=== PATIENT | male | born 1970 | race Caucasian/White ===

== ENCOUNTER 2018-12-02 08:43 | Inpatient (IN) | payer OTHER ==
[~2018-12-02] VITALS: Ht 167.6 cm; Wt 70.8 kg
[2018-12-02] MEDS ORDERED: IV NORMAL SALINE 1000ML BAG 1,000 ML IV ONE ×2 (09:00→11:15)
[2018-12-02] MEDS ORDERED: ONDANSETRON PF 4 MG/2 ML VIAL. IV ONE (09:00)
[2018-12-02] MEDS ORDERED: KETOROLAC 30 MG/ML VIAL. IV ONE (09:00)
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
--- NOTE | 2018-12-02 09:53 | RAD ---
Examination: Ultrasound testis HISTORY: History of testicular pain COMPARISON: None available FINDINGS: The right testis measures 5.6 x 3.8 x 2.3 cm. The left testis measures 5.6 x 3.4 x 2.4 cm. The right and left testis appears homogenous. Normal blood flow identified in the right and left testis. Small bilateral hydroceles identified. Left-sided varicocele is identified in the mid and lateral portion. IMPRESSION: 1. Left-sided varicocele. 2. Small bilateral hydroceles. Electronically signed by: Tomi Lai MD (12/02/2018 9:51 AM) [place] [id number]
[2018-12-02 10:08] LABS: CALCIUM 8.6 mg/dL (8.5-10.1); CREATININE 1.2 mg/dL (0.7-1.3); GFR 64.1; POTASSIUM 4.3 mmol/L (3.5-5.1)
--- NOTE | 2018-12-02 10:11 | RAD ---
Examination: CT of the abdomen pelvis without contrast HISTORY: History of left groin pain radiating to the testis COMPARISON: None available TECHNIQUE: Axial CT images of the abdomen pelvis were performed without contrast. Coronal and sagittal reformats are performed Exposure: One or more of the following individualized dose reduction techniques were utilized for this examination: 1. Automated exposure control 2. Adjustment of the mA and/or kV according to patient size 3. Use of iterative reconstruction technique FINDINGS: Mild bibasilar lung airspace opacity likely atelectasis or infiltrates. No evidence of free air identified in the abdomen. The evaluation of the solid organs is limited due to lack of IV contrast. The evaluation of bowel is limited due to lack of oral contrast. The visualized noncontrasted liver, spleen, adrenals grossly appears unremarkable. The gallbladder is mildly distended. The stomach is minimally distended. The visualized pancreas grossly appears unremarkable. The small bowel is nondilated. The appendix is normal. Feces and gas noted in the colon. Multiple colonic Diverticulosis. Urinary bladder is mildly distended. Mild left-sided hydronephrosis and minimal left hydroureter identified. There is a 5.5 mm calculus identified just distal to the left ureterovesical junction. Urinary bladder is mildly distended. Mild enlarged prostate gland. Mild degenerative changes lumbar spine. IMPRESSION: 1. A 5.5 mm calculus identified just distal to the left ureterovesical junction causing minimal left-sided hydronephrosis and hydroureter. Electronically signed by: Tomi Lai MD (12/02/2018 10:09 AM) [facility]
[2018-12-02 10:14] LABS: ALBUMIN 3.3 g/dL (3.4-5.0); ALBUMIN/GLOBULIN RATIO 0.9 (1.0-1.7); TOTAL BILIRUBIN 0.4 mg/dL (0.2-1.0); TOTAL PROTEIN 6.8 g/dL (6.4-8.2)
[2018-12-02 10:24] LABS: BASO # 0.1 x10^3/uL (0.0-0.2); BASO % 1 % (0-3); EOS # 0.2 x10^3/uL (0.0-0.7); EOS % 2 % (0-3); HEMATOCRIT 40.5 % (39.0-53.0); HEMOGLOBIN 14.1 g/dL (13.0-17.5); LYMPH # 1.2 x10^3/uL (1.0-4.8); LYMPH % 15 % (24-48); MEAN CORPUSCULAR HEMOGLOBIN 31 pg (25-35); MEAN CORPUSCULAR HGB CONC 35 g/dL (31-37); MEAN CORPUSCULAR VOLUME 90 fL (79-100); MONO # 0.6 x10^3/uL (0.0-1.1); MONO % 7 % (0-9); NEUT % 75 % (31-73); PLATELET COUNT 157 x10^3/uL (140-400); RED CELL DISTRIBUTION WIDTH 14.6 % (11.5-14.5)
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
[2018-12-02] MEDS ORDERED: TAMSULOSIN 0.4 MG CAP.ER.24H. PO ONE (11:00)
[2018-12-02] MEDS ORDERED: MORPHINE SULFATE 10 MG/ML VIAL. IV ONE (11:00)
[2018-12-02] MEDS ORDERED: MORPHINE SULFATE 4 MG/ML VIAL. IV PRN (11:15)
[2018-12-02] MEDS ORDERED: IV RINGERS,LACTATED 1000ML 1,000 ML IV SCH (11:44)
[2018-12-02] MEDS ORDERED: PROCHLORPERAZINE 10 MG/2 ML VIAL. IV PRN (11:45)
[2018-12-02] MEDS ORDERED: fentaNYL PF VIAL 100 MCG/2 ML VIAL IV PRN ×2 (11:45)
[2018-12-02] MEDS ORDERED: ONDANSETRON PF 4 MG/2 ML VIAL. IV PRN (11:45)
[2018-12-02] MEDS ORDERED: MORPHINE SULFATE 2 MG/ML VIAL. IV PRN (11:45)
[2018-12-02] MEDS ORDERED: LIDOCAINE 1% PF 2 ML VIAL. ID PRN (11:45)
[2018-12-02] MEDS ORDERED: HYDROmorphone 2 MG/ML VIAL IV PRN (11:45)
--- NOTE | 2018-12-02 12:54 | PDOC2 ---
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 when he started to have severe pain in his left lower abdomen and left side. It got so intense that he came into [facility] ER. This is the first time he has had any problems with kidney stones. He also denies every having any prostate problems to his knowledge. 15 years ago, he did have a "urethral stricture or blockage" which was dilated by an emergency room physician at [facility], but other than the he is fairly healthy overall. He did vomit once but has not been nauseas since. Currently his pain is 2/10 on his left flank, but he just got a shot of morphine. He denies dysuria or seeing blood in his urine, and is no longer nauseas. He prefers a surgery today if possible. Past Medical History Renal/: Other (Kidney stone ) Current Medications Current Medications Current Medications Fentanyl Citrate (Fentanyl 2ml Vial) 25 mcg PRN Q5MIN PRN IV MILD PAIN 1-3; Start 12/02/18 at 11:45; Stop 12/03/18 at 11:44 Fentanyl Citrate (Fentanyl 2ml Vial) 50 mcg PRN Q5MIN PRN IV MODERATE TO SEVERE PAIN; Start 12/02/18 at 11:45; Stop 12/03/18 at 11:44 Hydromorphone HCl (Dilaudid) 0.5 mg PRN Q10MIN PRN IV SEV PAIN, Second choice; Start 12/02/18 at 11:45; Stop 12/03/18 at 11:44 Ketorolac Tromethamine (Toradol 30mg Vial) 30 mg 1X ONCE IV Last administered on 12/02/18at 09:16; Start 12/02/18 at 09:00; Stop 12/02/18 at 09:01; Status DC Lidocaine HCl (Xylocaine-Mpf 1% 2ml Vial) 2 ml PRN 1X PRN ID PRIOR TO IV START; Start 12/02/18 at 11:45; Stop 12/03/18 at 11:44 Morphine Sulfate (Morphine Sulfate) 1 mg PRN Q10MIN PRN IV SEVERE PAIN 7-10; Start 12/02/18 at 11:45; Stop 12/03/18 at 11:44 Morphine Sulfate (Morphine Sulfate) 4 mg PRN Q2HR PRN IV PAIN; Start 12/02/18 at 11:15; Stop 12/03/18 at 11:14 Morphine Sulfate (Morphine Sulfate) 5 mg 1X ONCE IV Last administered on 12/02/18at 11:05; Start 12/02/18 at 11:00; Stop 12/02/18 at 11:01; Status DC Ondansetron HCl (Zofran) 4 mg 1X ONCE IV Last administered on 12/02/18at 09:16; Start 12/02/18 at 09:00; Stop 12/02/18 at 09:01; Status DC Ondansetron HCl (Zofran) 4 mg PRN Q6HRS PRN IV NAUSEA/VOMITING; Start 12/02/18 at 11:45; Stop 12/03/18 at 11:44 Ondansetron HCl (Zofran) 4 mg PRN Q8HRS PRN IV NAUSEA/VOMITING; Start 12/02/18 at 11:15; Stop 12/03/18 at 11:14 Prochlorperazine Edisylate (Compazine) 5 mg PACU PRN PRN IV NAUSEA, MRX1; Start 12/02/18 at 11:45; Stop 12/03/18 at 11:44 Ringer's Solution 1,000 ml @ 30 mls/hr Q24H IV ; Start 12/02/18 at 11:44; Stop 12/02/18 at 23:43 Sodium Chloride 1,000 ml @ 125 mls/hr 1X ONCE IV ; Start 12/02/18 at 11:15; Stop 12/02/18 at 19:14 Sodium Chloride 1,000 ml @ 1,000 mls/hr 1X ONCE IV Last administered on 12/02/18at 09:15; Start 12/02/18 at 09:00; Stop 12/02/18 at 09:59; Status DC Tamsulosin HCl (Flomax) 0.4 mg 1X ONCE PO Last administered on 12/02/18at 11:04; Start 12/02/18 at 11:00; Stop 12/02/18 at 11:01; Status DC Allergies Allergies: Coded Allergies: No Known Drug Allergies (Unverified , 12/02/18) ROS Review Of Systems: CONSTITUTIONAL: No fever or chills EYES: No recent changes SKIN: No rash or itching CARDIOVASCULAR: No chest pain, syncope, palpitations, or edema RESPIRATORY: No SOB or cough GASTROINTESTINAL: + abdominal pain left side NEUROLOGICAL: No headaches or weakness ENDOCRINE: No cold or heat intolerance GENITOURINARY: No urgency or frequency of urination MUSCULOSKELETAL: No back pain or joint pain LYMPHATICS: No enlarged lymph nodes PSYCHIATRIC: No anxiety or depression Physical Exam Physical Exam: General: Pleasant, no acute distress, well groomed Eyes: conjunctiva anicteric, eyes full range of motion ENT: moist oral mucosa, normal dentition Neck: Trachea midline, no masses Respiratory: unlabored breathing, not using accessory muscles, Back: +CVA pain on the left, none on the right Abdomen: slight tenderness left side, non tender on the right. Skin: no rashes or skin lesions on visualized skin Psych: normal mood, affect. Alert and oriented x 3. Vitals VITALS Vital Signs Date Time Temp Pulse Resp B/P (MAP) Pulse Ox O2 Delivery O2 Flow Rate FiO2 12/02/18 11:05 20 12/02/18 11:03 58 129/66 (87) 99 Room Air 12/02/18 08:58 98.2 98.2 Labs Labs Laboratory Tests Test 12/02/18 09:40 White Blood Count 8.0 x10^3/uL (4.0-11.0) Red Blood Count 4.50 x10^6/uL (4.30-5.70) Hemoglobin 14.1 g/dL (13.0-17.5) Hematocrit 40.5 % (39.0-53.0) Mean Corpuscular Volume 90 fL (79-100) Mean Corpuscular Hemoglobin 31 pg (25-35) Mean Corpuscular Hemoglobin Concent 35 g/dL (31-37) Red Cell Distribution Width 14.6 % (11.5-14.5) Platelet Count 157 x10^3/uL (140-400) Neutrophils (%) (Auto) 75 % (31-73) Lymphocytes (%) (Auto) 15 % (24-48) Monocytes (%) (Auto) 7 % (0-9) Eosinophils (%) (Auto) 2 % (0-3) Basophils (%) (Auto) 1 % (0-3) Neutrophils # (Auto) 6.0 x10^3uL (1.8-7.7) Lymphocytes # (Auto) 1.2 x10^3/uL (1.0-4.8) Monocytes # (Auto) 0.6 x10^3/uL (0.0-1.1) Eosinophils # (Auto) 0.2 x10^3/uL (0.0-0.7) Basophils # (Auto) 0.1 x10^3/uL (0.0-0.2) Sodium Level 142 mmol/L (136-145) Potassium Level 4.3 mmol/L (3.5-5.1) Chloride Level 107 mmol/L (98-107) Carbon Dioxide Level 24 mmol/L (21-32) Anion Gap 11 (6-14) Blood Urea Nitrogen 19 mg/dL (8-26) Creatinine 1.2 mg/dL (0.7-1.3) Estimated GFR (Cockcroft-Gault) 64.1 BUN/Creatinine Ratio 16 (6-20) Glucose Level 110 mg/dL (70-99) Calcium Level 8.6 mg/dL (8.5-10.1) Total Bilirubin 0.4 mg/dL (0.2-1.0) Aspartate Amino Transf (AST/SGOT) 23 U/L (15-37) Alanine Aminotransferase (ALT/SGPT) 28 U/L (16-63) Alkaline Phosphatase 119 U/L (46-116) Total Protein 6.8 g/dL (6.4-8.2) Albumin 3.3 g/dL (3.4-5.0) Albumin/Globulin Ratio 0.9 (1.0-1.7) Lipase 99 U/L (73-393) Ethyl Alcohol Level < 10 mg/dL (0-10) Laboratory Tests Test 12/02/18 09:40 White Blood Count 8.0 x10^3/uL (4.0-11.0) Red Blood Count 4.50 x10^6/uL (4.30-5.70) Hemoglobin 14.1 g/dL (13.0-17.5) Hematocrit 40.5 % (39.0-53.0) Mean Corpuscular Volume 90 fL (79-100) Mean Corpuscular Hemoglobin 31 pg (25-35) Mean Corpuscular Hemoglobin Concent 35 g/dL (31-37) Red Cell Distribution Width 14.6 % (11.5-14.5) Platelet Count 157 x10^3/uL (140-400) Neutrophils (%) (Auto) 75 % (31-73) Lymphocytes (%) (Auto) 15 % (24-48) Monocytes (%) (Auto) 7 % (0-9) Eosinophils (%) (Auto) 2 % (0-3) Basophils (%) (Auto) 1 % (0-3) Neutrophils # (Auto) 6.0 x10^3uL (1.8-7.7) Lymphocytes # (Auto) 1.2 x10^3/uL (1.0-4.8) Monocytes # (Auto) 0.6 x10^3/uL (0.0-1.1) Eosinophils # (Auto) 0.2 x10^3/uL (0.0-0.7) Basophils # (Auto) 0.1 x10^3/uL (0.0-0.2) Sodium Level 142 mmol/L (136-145) Potassium Level 4.3 mmol/L (3.5-5.1) Chloride Level 107 mmol/L (98-107) Carbon Dioxide Level 24 mmol/L (21-32) Anion Gap 11 (6-14) Blood Urea Nitrogen 19 mg/dL (8-26) Creatinine 1.2 mg/dL (0.7-1.3) Estimated GFR (Cockcroft-Gault) 64.1 BUN/Creatinine Ratio 16 (6-20) Glucose Level 110 mg/dL (70-99) Calcium Level 8.6 mg/dL (8.5-10.1) Total Bilirubin 0.4 mg/dL (0.2-1.0) Aspartate Amino Transf (AST/SGOT) 23 U/L (15-37) Alanine Aminotransferase (ALT/SGPT) 28 U/L (16-63) Alkaline Phosphatase 119 U/L (46-116) Total Protein 6.8 g/dL (6.4-8.2) Albumin 3.3 g/dL (3.4-5.0) Albumin/Globulin Ratio 0.9 (1.0-1.7) Lipase 99 U/L (73-393) Ethyl Alcohol Level < 10 mg/dL (0-10) Images Images CT ABD PELVIS IMPRESSION: 1. A 5.5 mm calculus identified just distal to the left ureterovesical junction causing minimal left-sided hydronephrosis and hydroureter. Assessment/Plan Assessment/Plan We will take patient to surgery today for L URS and stent placement with Dr. Morales [place] [facility] [place]. Explained procedure to patient, all questions answered. Pt to remain NPO until after procedure. Nurse to obtain UA. Consents entered. Ancef 2 gram preopp times one. Continue hydration, Flomax. SEAN MORALES MD 12/02/18 1451: UROLOGY CONSULT Assessment/Plan Assessment/Plan Patient seen and examined. CT scan images reviewed - 5-6 mm left UVJ stone. He does not want to try to pass the stone, elects for ureteroscopy, laser of stone, possible stent placement. Risks of procedure discussed in detail. IVANNA MOORE APRN December 02, 2018 12:54 SEAN MORALES MD December 02, 2018 14:51
[2018-12-02 12:56] LABS: BILIRUBIN,URINE NEGATIVE (NEG); CLARITY,URINE CLOUDY; COLOR,URINE YELLOW; NITRITE,URINE NEGATIVE (NEG); PH,URINE 5.5; PROTEIN,URINE NEGATIVE (NEG-TRACE); UROBILINOGEN,URINE 0.2 mg/dL (0.2 mg/dL)
[2018-12-02 13:00] VITALS: BP 129/70
[2018-12-02 13:02] LABS: BARBITURATES NEG (NEG); BENZODIAZEPINES NEG (NEG); CANNABINOIDS NEG (NEG); COCAINE NEG (NEG); METHADONE NEG (NEG); OPIATES POS (NEG); PHENCYCLIDINE NEG (NEG)
[2018-12-02 13:04] LABS: AMPHETAMINE/METHAMPHETAMINE NEG (NEG)
[2018-12-02 13:05] LABS: BACTERIA,URINE 0 /HPF (0-FEW); SQUAMOUS EPITHELIAL CELL,UR FEW /LPF; WBC,URINE OCC /HPF (0-4)
[2018-12-02 15:19] VITALS: BP 108/61
[2018-12-02] MEDS ORDERED: IOHEXOL 300 MG/ML 50 ML VIAL. ONE (16:40)
[2018-12-02] MEDS ORDERED: LIDOCAINE 2% JELLY 6ML IN APPLICATOR. ONE (16:41)
[2018-12-02] MEDS ORDERED: fentaNYL PF VIAL 100 MCG/2 ML VIAL ONE (17:49)
[2018-12-02] MEDS ORDERED: MIDAZOLAM HCL/PF 2 MG/2 ML VIAL. ONE (17:49)
[2018-12-02] MEDS ORDERED: ceFAZolin 2GM PREMIX 2 GM/50 ML BAG IV ONE (18:00)
[2018-12-02] MEDS ORDERED: IOHEXOL 300 MG/ML 50 ML VIAL. IV ONE (18:41)
--- NOTE | 2018-12-02 18:50 | PDOC4 ---
OPERATIVE NOTE Date: Date: December 02, 2018 Pre-Op Diagnosis: left ureter stone Post-Op Diagnosis: bladder stone, urethral stricture Procedure Performed: left diagnostic ureteroscopy dilation of urethral stricture Surgeon: Sean Morales MD Anesthesia Type: general Blood Loss: 0 Specimans Obtained: stone fragments Findings: stone in bladder. no stones in left ureter membranous urethral stricture Complications: none Operative Note: see dictation SEAN MORALES MD December 02, 2018 18:50
[2018-12-02] MEDS ORDERED: DEXAMETHASONE SOD PHOS 4 MG/ML VIAL ONE (18:53)
[2018-12-02] MEDS ORDERED: LIDOCAINE 2% PF 5 ML VIAL. ONE (18:53)
[2018-12-02] MEDS ORDERED: PROPOFOL 20 ML IV ONE (18:53)
[2018-12-02] MEDS ORDERED: ONDANSETRON PF 4 MG/2 ML VIAL. ONE (18:53)
[2018-12-02] MEDS ORDERED: SEVOFLURANE 31 TO 60 MINUTES. IH ONE (18:53)
--- NOTE | 2018-12-02 19:20 | NUR ---
RN received report from Johanna in PACU. Pt was transported via bed from PACU to room 412 at 1930. RN performed a head to toe assessment at that time. Patient reported pain a 4/10, VSS, and afebrile. Post op vitals were started at that time. RN will continue to monitor patient closely.
[2018-12-02 20:07] VITALS: BP 115/68
[2018-12-02] MEDS: KETOROLAC 30 MG/ML VIAL. IV PRN (20:15)
--- NOTE | 2018-12-02 20:19 | OP ---
DATE OF SURGERY: 12/02/2018 SURGEON: Sean Morales MD DRILL [employer] OPERATOR: None. PREOPERATIVE DIAGNOSIS: Left ureter stone. POSTOPERATIVE DIAGNOSES: Bladder stone and urethral stricture. PROCEDURES PERFORMED: Diagnostic left ureteroscopy with retrograde pyelogram and dilation of urethral stricture. ANESTHESIA TYPE: General. DESCRIPTION OF PROCEDURE: This is a 48-year-old male who was admitted with a 5 mm distal left ureter stone. After discussion of risks, benefits and alternatives, he agreed to the above procedure. Informed consent was obtained. The patient was taken to the operating room where general anesthesia was induced. He was placed in the dorsal lithotomy position and sterilely prepped and draped. A timeout was performed. A rigid cystoscope was advanced into the urethra. A dense stricture was noted in the membranous urethra about 1.5 cm in length. A guidewire was advanced through the narrowed urethral opening and into the bladder. Under fluoroscopic guidance, the urethral stricture was dilated up to 24-Setswana with Krishnamurthy sounds. The cystoscope was then reintroduced and the urethra appeared to have dilated nicely without any bleeding noted. Within the bladder, was a stone. The stone was evacuated through the scope and broke apart and then the stone fragments were sent as a specimen. The left ureteral orifice was inspected with the cystoscope and there were no obvious ureteral jets noted, so a guidewire was placed into the left ureter and advanced into the left renal pelvis. Ureteral catheter was advanced over the wire and then a left retrograde pyelogram was performed, which showed mild left hydronephrosis. The guidewire was reintroduced. A rigid ureteroscope was advanced alongside the wire and then up into the mid ureter and no stones were noted. The scope and wire were withdrawn. The flexible cystoscope was reintroduced and the left ureteral orifice was again observed and at this point, strong jets of urine and contrast were seen draining into the bladder. There was no residual contrast noted on fluoroscopy after about 2 minutes. The bladder contents were emptied. The patient was then awakened and taken to the recovery room in stable condition. BLOOD LOSS: None. COMPLICATIONS: None. SPECIMENS: Stone fragments. SEAN MORALES MD DR: LEXII/shaka JOB#: [id number] / [id number]
[2018-12-02] MEDS: TAMSULOSIN 0.4 MG CAP.ER.24H. PO SCH (20:57)
--- NOTE | 2018-12-02 22:08 | NUR ---
RN paged MD to get something additional for pain per patient request. Orders were received and implemented at that time. RN will continue to monitor patient closely.
[2018-12-02] MEDS ORDERED: HYDROcodone/APAP 5/325MG 1 TAB TABLET PO PRN (22:15)
[2018-12-02] MEDS: HYDROcodone/APAP 5/325MG 1 TAB TABLET PO PRN (22:35)
[2018-12-02] MEDS: ONDANSETRON PF 4 MG/2 ML VIAL. IV PRN (22:36)
[2018-12-02 23:00] VITALS: BP 107/58
[2018-12-03 03:00] VITALS: BP 94/49
[2018-12-03 03:52] LABS: BASO % 0 % (0-3); EOS % 0 % (0-3); HEMATOCRIT 38.5 % (39.0-53.0); HEMOGLOBIN 12.9 g/dL (13.0-17.5); LYMPH % 15 % (24-48); MEAN CORPUSCULAR HEMOGLOBIN 31 pg (25-35); MEAN CORPUSCULAR HGB CONC 33 g/dL (31-37); MEAN CORPUSCULAR VOLUME 91 fL (79-100); MONO # 0.2 x10^3/uL (0.0-1.1); MONO % 3 % (0-9); NEUT # 5.7 x10^3uL (1.8-7.7); NEUT % 83 % (31-73); PLATELET COUNT 153 x10^3/uL (140-400); RED BLOOD COUNT 4.22 x10^6/uL (4.30-5.70); RED CELL DISTRIBUTION WIDTH 14.1 % (11.5-14.5); WHITE BLOOD COUNT 6.9 x10^3/uL (4.0-11.0)
[2018-12-03 07:00] VITALS: BP 96/54
[2018-12-03] MEDS: TAMSULOSIN 0.4 MG CAP.ER.24H. PO SCH (07:54)
[2018-12-03] MEDS: KETOROLAC 30 MG/ML VIAL. IV PRN (07:54)
[2018-12-03] MEDS: HYDROcodone/APAP 5/325MG 1 TAB TABLET PO PRN (10:27)
[2018-12-03] MEDS: ONDANSETRON PF 4 MG/2 ML VIAL. IV PRN (10:28)
[2018-12-03 11:00] VITALS: BP 108/55
--- NOTE | 2018-12-03 11:03 | NUR ---
SW following for discharge planning. Discussed with RN, pt is from home. RN and Dr. Brown advised possible discharge if okay with urology. RN advised no SW needs. SW will continue to follow.
[2018-12-03] MEDS ORDERED: MAG HYDROX/ALUMINUM HYD/SIMETH 30 ML ORAL.SUSP PO PRN (12:00)
[2018-12-03] MEDS ORDERED: CALCIUM CARBONATE 500 MG TAB.CHEW PO PRN (12:00)
--- NOTE | 2018-12-03 12:59 | PDOC ---
PROGRESS NOTES Chief Complaint Chief Complaint Left groin pain - obstructive nephrolithiasis. Consulted urology. Elevated glucose - will monitor, no h/o DM Elevated alkaline phos - will monitor, no liver history Smoker - offered nicotine patch, counseled on cessation Left hydronephrosis - 2/2 obstructive nephrolithiasis, no sx of pyelo, Nausea and vomiting - likely 2/2 nephrolithiasis, will give IV zofran History of Present Illness History of Present Illness Patient lying in bed in no acute distress, patient denies fever and chills, he compalined of heartburn after my visit. Awaiting for urology final recommendations. Vitals Vitals Vital Signs Date Time Temp Pulse Resp B/P (MAP) Pulse Ox O2 Delivery O2 Flow Rate FiO2 12/03/18 11:24 96 Room Air 12/03/18 11:00 97.4 60 20 108/55 (72) 97.4 12/02/18 19:10 8 Physical Exam General: Alert, Oriented X3, Cooperative, No acute distress Abdomen: Normal bowel sounds, Soft, No hepatosplenomegaly, No masses, Other (Left flank pain) Extremities: No clubbing, No cyanosis, No edema, Normal pulses, No tenderness/swelling Skin: No rashes, No breakdown, No significant lesion Labs LABS Laboratory Tests Test 12/03/18 03:05 White Blood Count 6.9 x10^3/uL (4.0-11.0) Red Blood Count 4.22 x10^6/uL (4.30-5.70) Hemoglobin 12.9 g/dL (13.0-17.5) Hematocrit 38.5 % (39.0-53.0) Mean Corpuscular Volume 91 fL (79-100) Mean Corpuscular Hemoglobin 31 pg (25-35) Mean Corpuscular Hemoglobin Concent 33 g/dL (31-37) Red Cell Distribution Width 14.1 % (11.5-14.5) Platelet Count 153 x10^3/uL (140-400) Neutrophils (%) (Auto) 83 % (31-73) Lymphocytes (%) (Auto) 15 % (24-48) Monocytes (%) (Auto) 3 % (0-9) Eosinophils (%) (Auto) 0 % (0-3) Basophils (%) (Auto) 0 % (0-3) Neutrophils # (Auto) 5.7 x10^3uL (1.8-7.7) Lymphocytes # (Auto) 1.0 x10^3/uL (1.0-4.8) Monocytes # (Auto) 0.2 x10^3/uL (0.0-1.1) Eosinophils # (Auto) 0.0 x10^3/uL (0.0-0.7) Basophils # (Auto) 0.0 x10^3/uL (0.0-0.2) Review of Systems Review of Systems pertinent as per hpi otherwise 10 point review of system is negative. Assessment and Plan Assessmemt and Plan Problems Medical Problems: (1) Hydrocele Status: Acute (2) Kidney stones Status: Acute (3) Varicocele Status: Acute Comment Review of Relevant I have reviewed the following items jake (where applicable) has been applied. Labs Laboratory Tests Test 12/02/18 09:40 12/02/18 12:30 12/03/18 03:05 White Blood Count 8.0 x10^3/uL (4.0-11.0) 6.9 x10^3/uL (4.0-11.0) Red Blood Count 4.50 x10^6/uL (4.30-5.70) 4.22 x10^6/uL (4.30-5.70) Hemoglobin 14.1 g/dL (13.0-17.5) 12.9 g/dL (13.0-17.5) Hematocrit 40.5 % (39.0-53.0) 38.5 % (39.0-53.0) Mean Corpuscular Volume 90 fL (79-100) 91 fL (79-100) Mean Corpuscular Hemoglobin 31 pg (25-35) 31 pg (25-35) Mean Corpuscular Hemoglobin Concent 35 g/dL (31-37) 33 g/dL (31-37) Red Cell Distribution Width 14.6 % (11.5-14.5) 14.1 % (11.5-14.5) Platelet Count 157 x10^3/uL (140-400) 153 x10^3/uL (140-400) Neutrophils (%) (Auto) 75 % (31-73) 83 % (31-73) Lymphocytes (%) (Auto) 15 % (24-48) 15 % (24-48) Monocytes (%) (Auto) 7 % (0-9) 3 % (0-9) Eosinophils (%) (Auto) 2 % (0-3) 0 % (0-3) Basophils (%) (Auto) 1 % (0-3) 0 % (0-3) Neutrophils # (Auto) 6.0 x10^3uL (1.8-7.7) 5.7 x10^3uL (1.8-7.7) Lymphocytes # (Auto) 1.2 x10^3/uL (1.0-4.8) 1.0 x10^3/uL (1.0-4.8) Monocytes # (Auto) 0.6 x10^3/uL (0.0-1.1) 0.2 x10^3/uL (0.0-1.1) Eosinophils # (Auto) 0.2 x10^3/uL (0.0-0.7) 0.0 x10^3/uL (0.0-0.7) Basophils # (Auto) 0.1 x10^3/uL (0.0-0.2) 0.0 x10^3/uL (0.0-0.2) Sodium Level 142 mmol/L (136-145) Potassium Level 4.3 mmol/L (3.5-5.1) Chloride Level 107 mmol/L (98-107) Carbon Dioxide Level 24 mmol/L (21-32) Anion Gap 11 (6-14) Blood Urea Nitrogen 19 mg/dL (8-26) Creatinine 1.2 mg/dL (0.7-1.3) Estimated GFR (Cockcroft-Gault) 64.1 BUN/Creatinine Ratio 16 (6-20) Glucose Level 110 mg/dL (70-99) Calcium Level 8.6 mg/dL (8.5-10.1) Total Bilirubin 0.4 mg/dL (0.2-1.0) Aspartate Amino Transf (AST/SGOT) 23 U/L (15-37) Alanine Aminotransferase (ALT/SGPT) 28 U/L (16-63) Alkaline Phosphatase 119 U/L (46-116) Total Protein 6.8 g/dL (6.4-8.2) Albumin 3.3 g/dL (3.4-5.0) Albumin/Globulin Ratio 0.9 (1.0-1.7) Lipase 99 U/L (73-393) Ethyl Alcohol Level < 10 mg/dL (0-10) Urine Collection Type Unknown Urine Color Yellow Urine Clarity Cloudy Urine pH 5.5 Urine Specific [place] 1.010 Urine Protein Negative mg/dL (NEG-TRACE) Urine Glucose (UA) Negative mg/dL (NEG) Urine Ketones (Stick) Negative mg/dL (NEG) Urine Blood Large (NEG) Urine Nitrite Negative (NEG) Urine Bilirubin Negative (NEG) Urine Urobilinogen Dipstick 0.2 mg/dL (0.2 mg/dL) Urine Leukocyte Esterase Negative (NEG) Urine RBC 6-10 /HPF (0-2) Urine WBC Occ /HPF (0-4) Urine Squamous Epithelial Cells Few /LPF Urine Bacteria 0 /HPF (0-FEW) Urine Opiates Screen Pos (NEG) Urine Methadone Screen Neg (NEG) Urine Barbiturates Neg (NEG) Urine Phencyclidine Screen Neg (NEG) Urine Amphetamine/Methamphetamine Neg (NEG) Urine Benzodiazepines Screen Neg (NEG) Urine Cocaine Screen Neg (NEG) Urine Cannabinoids Screen Neg (NEG) Urine Ethyl Alcohol Neg (NEG) Laboratory Tests Test 12/03/18 03:05 White Blood Count 6.9 x10^3/uL (4.0-11.0) Red Blood Count 4.22 x10^6/uL (4.30-5.70) Hemoglobin 12.9 g/dL (13.0-17.5) Hematocrit 38.5 % (39.0-53.0) Mean Corpuscular Volume 91 fL (79-100) Mean Corpuscular Hemoglobin 31 pg (25-35) Mean Corpuscular Hemoglobin Concent 33 g/dL (31-37) Red Cell Distribution Width 14.1 % (11.5-14.5) Platelet Count 153 x10^3/uL (140-400) Neutrophils (%) (Auto) 83 % (31-73) Lymphocytes (%) (Auto) 15 % (24-48) Monocytes (%) (Auto) 3 % (0-9) Eosinophils (%) (Auto) 0 % (0-3) Basophils (%) (Auto) 0 % (0-3) Neutrophils # (Auto) 5.7 x10^3uL (1.8-7.7) Lymphocytes # (Auto) 1.0 x10^3/uL (1.0-4.8) Monocytes # (Auto) 0.2 x10^3/uL (0.0-1.1) Eosinophils # (Auto) 0.0 x10^3/uL (0.0-0.7) Basophils # (Auto) 0.0 x10^3/uL (0.0-0.2) Medications Current Medications Sodium Chloride 1,000 ml @ 1,000 mls/hr 1X ONCE IV Last administered on 12/02/18at 09:15; Start 12/02/18 at 09:00; Stop 12/02/18 at 09:59; Status DC Ketorolac Tromethamine (Toradol 30mg Vial) 30 mg 1X ONCE IV Last administered on 12/02/18at 09:16; Start 12/02/18 at 09:00; Stop 12/02/18 at 09:01; Status DC Ondansetron HCl (Zofran) 4 mg 1X ONCE IV Last administered on 12/02/18at 09:16; Start 12/02/18 at 09:00; Stop 12/02/18 at 09:01; Status DC Tamsulosin HCl (Flomax) 0.4 mg 1X ONCE PO Last administered on 12/02/18at 11:04; Start 12/02/18 at 11:00; Stop 12/02/18 at 11:01; Status DC Morphine Sulfate (Morphine Sulfate) 5 mg 1X ONCE IV Last administered on 12/02/18at 11:05; Start 12/02/18 at 11:00; Stop 12/02/18 at 11:01; Status DC Ondansetron HCl (Zofran) 4 mg PRN Q8HRS PRN IV NAUSEA/VOMITING Last administered on 12/03/18at 10:28; Start 12/02/18 at 11:15; Stop 12/03/18 at 11:14; Status DC Morphine Sulfate (Morphine Sulfate) 4 mg PRN Q2HR PRN IV PAIN Last administered on 12/02/18at 14:09; Start 12/02/18 at 11:15; Stop 12/02/18 at 16:13; Status DC Sodium Chloride 1,000 ml @ 125 mls/hr 1X ONCE IV Last administered on 12/02/18at 14:14; Start 12/02/18 at 11:15; Stop 12/02/18 at 19:14; Status DC Ondansetron HCl (Zofran) 4 mg PRN Q6HRS PRN IV NAUSEA/VOMITING; Start 12/02/18 at 11:45; Stop 12/03/18 at 08:32; Status DC Fentanyl Citrate (Fentanyl 2ml Vial) 25 mcg PRN Q5MIN PRN IV MILD PAIN 1-3; Start 12/02/18 at 11:45; Stop 12/03/18 at 08:32; Status DC Fentanyl Citrate (Fentanyl 2ml Vial) 50 mcg PRN Q5MIN PRN IV MODERATE TO SEVERE PAIN; Start 12/02/18 at 11:45; Stop 12/03/18 at 08:32; Status DC Morphine Sulfate (Morphine Sulfate) 1 mg PRN Q10MIN PRN IV SEVERE PAIN 7-10; Start 12/02/18 at 11:45; Stop 12/02/18 at 16:13; Status DC Ringer's Solution 1,000 ml @ 30 mls/hr Q24H IV Last administered on 12/02/18at 18:02; Start 12/02/18 at 11:44; Stop 12/02/18 at 23:43; Status DC Lidocaine HCl (Xylocaine-Mpf 1% 2ml Vial) 2 ml PRN 1X PRN ID PRIOR TO IV START; Start 12/02/18 at 11:45; Stop 12/03/18 at 08:32; Status DC Hydromorphone HCl (Dilaudid) 0.5 mg PRN Q10MIN PRN IV SEV PAIN, Second choice; Start 12/02/18 at 11:45; Stop 12/03/18 at 08:32; Status DC Prochlorperazine Edisylate (Compazine) 5 mg PACU PRN PRN IV NAUSEA, MRX1; Start 12/02/18 at 11:45; Stop 12/03/18 at 08:32; Status DC Cefazolin Sodium/ Dextrose 50 ml @ 100 mls/hr 1X ONCE IV ; Start 12/02/18 at 17:00; Stop 12/02/18 at 17:29; Status DC Ketorolac Tromethamine (Toradol 30mg Vial) 30 mg PRN Q6HRS PRN IV PAIN Last administered on 12/03/18at 07:54; Start 12/02/18 at 16:15; Stop 12/07/18 at 16:14 Tamsulosin HCl (Flomax) 0.4 mg BID PO Last administered on 12/03/18at 07:54; Start 12/02/18 at 21:00 Iohexol (Omnipaque 300 Mg/ml) 50 ml STK-MED ONCE .ROUTE ; Start 12/02/18 at 16:40; Stop 12/02/18 at 17:41; Status DC Lidocaine HCl (Glydo (Lidocaine) Jelly) 6 alicia STK-MED ONCE .ROUTE ; Start 12/02/18 at 16:41; Stop 12/02/18 at 17:41; Status DC Midazolam HCl (Versed) 2 mg STK-MED ONCE .ROUTE ; Start 12/02/18 at 17:49; Stop 12/02/18 at 17:50; Status DC Fentanyl Citrate (Fentanyl 2ml Vial) 100 mcg STK-MED ONCE .ROUTE ; Start 12/02/18 at 17:49; Stop 12/02/18 at 17:50; Status DC Iohexol (Omnipaque 300 Mg/ml) 50 ml STK-MED ONCE IV Last administered on 12/02/18at 18:41; Start 12/02/18 at 18:41; Stop 12/02/18 at 18:42; Status DC Propofol 20 ml @ As Directed STK-MED ONCE IV ; Start 12/02/18 at 18:53; Stop 12/02/18 at 18:54; Status DC Lidocaine HCl (Lidocaine Pf 2% Vial) 5 ml STK-MED ONCE .ROUTE ; Start 12/02/18 at 18:53; Stop 12/02/18 at 18:54; Status DC Ondansetron HCl (Zofran) 4 mg STK-MED ONCE .ROUTE ; Start 12/02/18 at 18:53; Stop 12/02/18 at 18:54; Status DC Dexamethasone Sodium Phosphate (Decadron) 4 mg STK-MED ONCE .ROUTE ; Start 12/02/18 at 18:53; Stop 12/02/18 at 18:54; Status DC Sevoflurane (Ultane) 30 ml STK-MED ONCE IH ; Start 12/02/18 at 18:53; Stop 12/02/18 at 18:54; Status DC Acetaminophen/ Hydrocodone Bitart (Lortab 5/325) 1 tab PRN Q4HRS PRN PO PAIN; Start 12/02/18 at 22:15 Acetaminophen/ Hydrocodone Bitart (Lortab 5/325) 2 tab PRN Q4HRS PRN PO PAIN Last administered on 12/03/18at 10:27; Start 12/02/18 at 22:15 Calcium Carbonate/ Glycine (Tums) 500 mg PRN AFTMEALHC PRN PO INDIGESTION; Start 12/03/18 at 12:00 Al Hydroxide/Mg Hydroxide (Mylanta Plus Xs) 30 ml PRN Q2HR PRN PO HEARTBURN / GAS Last administered on 12/03/18at 11:52; Start 12/03/18 at 12:00 Cefazolin Sodium/ Dextrose (Ancef 2gm Premix) 2 gm STK-MED ONCE IV ; Start 12/02/18 at 18:00; Stop 12/03/18 at 12:25; Status DC Vitals/I & O Vital Sign - Last 24 Hours 12/02/18 12/02/18 12/02/18 12/02/18 13:00 13:30 14:09 15:19 Temp 98.2 97.8 98.2 97.8 Pulse 54 57 Resp 20 20 B/P (MAP) 129/70 (89) 108/61 (77) Pulse Ox 98 98 96 O2 Delivery Room Air Room Air Room Air 12/02/18 12/02/18 12/02/18 12/02/18 17:45 18:55 18:55 19:10 Temp 97.4 98.6 97.4 98.6 Pulse 60 55 56 Resp 20 18 18 B/P (MAP) 112/61 88/46 92/50 Pulse Ox 95 100 100 O2 Delivery Room Air Simple Mask Mask Simple Mask O2 Flow Rate 8 8 8 12/02/18 12/02/18 12/02/18 12/02/18 19:25 19:55 20:07 22:35 Temp 98.6 97.5 98.6 97.5 Pulse 54 45 Resp 18 18 B/P (MAP) 93/52 115/68 (84) Pulse Ox 95 96 O2 Delivery Room Air Room Air Room Air Room Air 12/02/18 12/03/18 12/03/18 12/03/18 23:00 03:00 07:00 07:34 Temp 97.7 97.9 97.8 97.7 97.9 97.8 Pulse 59 63 53 Resp 18 18 18 B/P (MAP) 107/58 (74) 94/49 (64) 96/54 (68) Pulse Ox 96 95 96 O2 Delivery Room Air Room Air Room Air Room Air 12/03/18 12/03/18 12/03/18 10:27 11:00 11:24 Temp 97.4 97.4 Pulse 60 Resp 20 B/P (MAP) 108/55 (72) Pulse Ox 96 95 96 O2 Delivery Room Air Room Air Room Air Intake and Output 12/02/18 12/02/18 12/03/18 14:59 22:59 06:59 Intake Total 1000 ml 1400 ml 800 ml Balance 1000 ml 1400 ml 800 ml LOIS STONER MD December 03, 2018 12:59
[2018-12-03] MEDS ORDERED: METHYL SALICYLATE/MENTHOL TOPICAL OINTMENT 29GM TUBE. TP PRN (13:45)
[2018-12-03 15:00] VITALS: BP 109/63
[2018-12-03] MEDS ORDERED: TAMS0.4C97 PO (17:36)
[2018-12-03] MEDS ORDERED: HYDR-2761 PO (17:36)
--- NOTE | 2018-12-03 17:50 | NUR ---
Discharge Note: NATHEN BRUNO Discharge instructions and discharge home medications reviewed with Patient and a copy given. All questions have been answered and understanding verbalized. The following instructions and handouts were given: information about kidney stones. Discontinued lines and drains: IV lines in left hand and right forearm removed, catheter tips intact. Patient discharged to home with self care with family member, patient ambulated to discharge vehicle.
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
--- NOTE | 2018-12-06 14:06 | PATHOLOGY ---
[facility] Accession Number: [id number] . 01 Material submitted: . ureter - LEFT URETERAL STONES. Modifiers: left . 01 Clinical history: . lEFT URETERAL CALCULI . 02 Diagnosis: Calculi, left ureter, removal: - Calculi/ureterolithiasis (gross diagnosis only). - Specimen forwarded for stone analysis, results to be reported in an addendum when available. [facility]/12/06/2018 . 02 Electronically signed: . Jun Daniels MD, Pathologist NPI- [id number] . 01 Gross description: . Received fresh, labeled "Jean-Claude Bautista, left ureteral stone", is an irregular fragment of dark brown calculus measuring 0.2 x 0.1 x 0.1 cm. Gross only. (SWS; 12/03/2018) [facility]S . 02 Pathologist provided ICD-10: N20.1 . 02 CPT . 081872 Specimen Comment: A courtesy copy of this report has been sent to Specimen Comment: [phone], , . Specimen Comment: Report sent to ,DR MCINTYRE / DR MILLIGAN Performed at: 01 [facility] [address], [place] [id number] MD Kelton Giordano MD Phone: [phone] Performed at: 02 [facility] [place] [address] [place], [place] [id number] MD Jun Daniels MD Phone: [phone]
== END 2018-12-03 17:50 | disposition home or self-care (01) | DRG 697 ==
LOC: ER 08:43 → 4 NORTH 10:57
PROVIDERS: ADMIT Internal Medicine; ATTEND Internal Medicine
PROC: 0T7D8ZZ Dilation of Urethra, Via Natural or Artificial Opening Endoscopic (ICD-10-PCS; 2018-12-02)
PROC: BT1F1ZZ Fluoroscopy of Left Kidney, Ureter and Bladder using Low Osmolar Contrast (ICD-10-PCS; 2018-12-02)
PROC: 0TCB8ZZ Extirpation of Matter from Bladder, Via Natural or Artificial Opening Endoscopic (ICD-10-PCS; principal; 2018-12-02 18:00)
DX: N35.919 Unspecified urethral stricture, male, unspecified site (principal); N13.2 Hydronephrosis with renal and ureteral calculous obstruction; N43.3 Hydrocele, unspecified; N21.0 Calculus in bladder; I86.1 Scrotal varices; F17.210 Nicotine dependence, cigarettes, uncomplicated; Z82.49 Family history of ischemic heart disease and other diseases of the circulatory system; Z71.6 Tobacco abuse counseling; Z87.442 Personal history of urinary calculi
CPT/HCPCS: 36415; 74176; 76000; 76870; 80053; 80307; 81001; 82365; 83690; 85025; 88300; 96361; 96374; 96375; A7015; C1713; C1769; G0480; J0696; J1100; J1885; J2001; J2250; J2270; J2405; J2704; J3010; J7030; J7120; Q9967; 99285-25